=== PATIENT | male | born 1970 | race Caucasian/White ===

== ENCOUNTER → 2023-08-31 | Outpatient (CLI) | payer OTHER | END | disposition home or self-care (01) | LOC: RESCLI 09:23 | PROVIDERS: ATTEND Student in an Organized Health Care Education/Training Program | DX: I11.0 Hypertensive heart disease with heart failure (principal); I50.30 Unspecified diastolic (congestive) heart failure; G89.29 Other chronic pain; F41.9 Anxiety disorder, unspecified; R56.9 Unspecified convulsions; R51.9 Headache, unspecified; G31.84 Mild cognitive impairment of uncertain or unknown etiology; E29.1 Testicular hypofunction; N52.9 Male erectile dysfunction, unspecified; E53.8 Deficiency of other specified B group vitamins; E56.9 Vitamin deficiency, unspecified; M62.838 Other muscle spasm; Z79.899 Other long term (current) drug therapy ==